=== PATIENT | female | born 1980 | race African-American/Black ===

== ENCOUNTER 2018-04-03 09:54 | Emergency (ER) | payer OTHER ==
[~2018-04-03] VITALS: Ht 149.9 cm; Wt 83.9 kg
[~2018-04-03 09:54] MED LIST: AZIT250T PO
[2018-04-03 10:26] VITALS: BP 125/76
[2018-04-03 10:40] LABS: BILIRUBIN,URINE NEGATIVE (NEG); CLARITY,URINE CLEAR; COLOR,URINE YELLOW; NITRITE,URINE NEGATIVE (NEG); PH,URINE 5.5; PROTEIN,URINE NEGATIVE (NEG-TRACE); UROBILINOGEN,URINE 0.2 mg/dL (0.2 mg/dL)
[2018-04-03 10:54] LABS: SQUAMOUS EPITHELIAL CELL,UR MOD /LPF
[2018-04-03 10:55] LABS: BACTERIA,URINE 0 /HPF (0-FEW); RBC,URINE 0 /HPF (0-2); WBC,URINE 20-40 /HPF (0-4)
[2018-04-03] MEDS ORDERED: cefTRIAXone IM 250 MG VIAL IM ONE (11:00)
[2018-04-03] MEDS ORDERED: AZITHROMYCIN 250 MG TABLET. PO ONE (11:00)
[2018-04-03] MEDS ORDERED: metroNIDAZOLE 500 MG TABLET PO ONE (11:00)
[2018-04-03] MEDS ORDERED: METR500T PO (11:31)
--- NOTE | 2018-04-03 11:31 | PHYS DOC ---
Past Medical History Past Medical History: Anxiety, Hypothyroid, Other Additional Past Medical Histor: CHRONIC PAIN, INSOMNIA Past Surgical History: Other Additional Past Surgical Histo: RIGHT CARPEL TUNNEL. Alcohol Use: None Drug Use: None Adult General Chief Complaint Chief Complaint: PAIN ON URINATION HPI HPI Patient is a 37 year old female who presents concerned she could have an STD. She states she's had vaginal itching and discharge for couple days. Also complaining of dysuria. Review of Systems Review of Systems Constitutional: Denies fever or chills [] Eyes: Denies change in visual acuity, redness, or eye pain [] HENT: Denies nasal congestion or sore throat [] Respiratory: Denies cough or shortness of breath [] Cardiovascular: No additional information not addressed in HPI [] GI: Denies abdominal pain, nausea, vomiting, bloody stools or diarrhea [] : Reports vaginal discharge, dysuria and concern for STDs. Denieshematuria [] Musculoskeletal: Denies back pain or joint pain [] Integument: Denies rash or skin lesions [] Neurologic: Denies headache, focal weakness or sensory changes [] All other systems were reviewed and found to be within normal limits, except as documented in this note. Current Medications Current Medications Current Medications Medications (Trade) Dose Ordered Sig/Ev Start Time Stop Time Status Last Admin Dose Admin Azithromycin (Zithromax) 1,000 mg 1X ONCE 04/03/18 11:00 04/03/18 11:11 DC 04/03/18 11:20 1,000 MG Ceftriaxone Sodium (Rocephin Im) 250 mg 1X ONCE 04/03/18 11:00 04/03/18 11:14 DC 04/03/18 11:21 250 MG Metronidazole (Flagyl) 2,000 mg 1X ONCE 04/03/18 11:00 04/03/18 11:11 DC 04/03/18 11:20 2,000 MG Allergies Allergies Allergies Coded Allergies Type Severity Reaction Last Updated Verified Penicillins Allergy Intermediate HIVES 02/07/18 Yes codeine Adverse Reaction Intermediate NAUSEA AND VOMITING 02/07/18 Yes Physical Exam Physical Exam Constitutional: Well developed, well nourished, no acute distress, non-toxic appearance. [] HENT: Normocephalic, atraumatic, bilateral external ears normal, oropharynx moist, no oral exudates, nose normal. [] Eyes: PERRLA, EOMI, conjunctiva normal, no discharge. [] Neck: Normal range of motion, no tenderness, supple, no stridor. [] Cardiovascular:Heart rate regular rhythm, no murmur [] Lungs & Thorax: Bilateral breath sounds clear to auscultation [] Abdomen: Bowel sounds normal, soft, no tenderness, no masses, no pulsatile masses. [] Pelvic exam External pelvic appears normal, cervix is closed, no CMT, no adnexal tenderness , small amount of white discharge in the vaginal vault. Skin: Warm, dry, no erythema, no rash. [] Back: No tenderness, no CVA tenderness. [] Extremities: No tenderness, no cyanosis, no clubbing, ROM intact, no edema. [] Neurologic: Alert and oriented X 3, normal motor function, normal sensory function, no focal deficits noted. [] Psychologic: Affect normal, judgement normal, mood normal. [] Current Patient Data Vital Signs Vital Signs Date Time Temp Pulse Resp B/P (MAP) Pulse Ox O2 Delivery O2 Flow Rate FiO2 04/03/18 10:26 98.3 80 16 125/76 (92) 100 Room Air 98.3 Lab Values Laboratory Tests Test 04/03/18 10:20 04/03/18 10:24 Urine Collection Type Unknown Urine Color Yellow Urine Clarity Clear Urine pH 5.5 Urine Specific [place] >=1.030 Urine Protein Negative mg/dL (NEG-TRACE) Urine Glucose (UA) Negative mg/dL (NEG) Urine Ketones (Stick) Trace mg/dL (NEG) Urine Blood Negative (NEG) Urine Nitrite Negative (NEG) Urine Bilirubin Negative (NEG) Urine Urobilinogen Dipstick 0.2 mg/dL (0.2 mg/dL) Urine Leukocyte Esterase Small (NEG) Urine RBC 0 /HPF (0-2) Urine WBC 20-40 /HPF (0-4) Urine Squamous Epithelial Cells Mod /LPF Urine Bacteria 0 /HPF (0-FEW) Urine Mucus Mod /LPF POC Urine HCG, Qualitative Hcg negative (Negative) Microbiology 04/03/18 Wet Prep - Final, Complete EKG EKG [] Radiology/Procedures Radiology/Procedures [] Course & Med Decision Making Course & Med Decision Making Pertinent Labs and Imaging studies reviewed. (See chart for details) This is a 37-year-old female patient presenting to the ED today with vaginal discharge and dysuria for couple days. Concerned about STDs. Positive for Trichomonas. Also positive for BV. Urine appears contaminated. Patient was given the standard STD treatment in the ED including Flagyl, Rocephin and azithromycin. Education provided. Follow-up with PCP in 1-2 weeks on the health department as needed. Staff Physician Addendum: I was working in the ER during the course of this patient's visit. I was available for consultation as needed, but I was not directly involved in the care of this patient. Dragon Disclaimer Dragon Disclaimer This electronic medical record was generated, in whole or in part, using a voice recognition dictation system. Departure Departure Impression: Primary Impression: Bacterial vaginosis Additional Impression: Trichomonas vaginitis Disposition: 01 HOME, SELF-CARE Condition: STABLE Referrals: NO PCP (PCP) Follow-up with your doctor or the health department as needed Patient Instructions: Bacterial Vaginosis, [id number], Trichomoniasis-Brief Additional Instructions: You tested positive for Trichomonas, this is a sexually transmitted disease, use protection at all times. Contact all your sex partners, let them know you were positive for Trichomonas, ask them to seek treatment too. No sex for 7 days. Use protection at all times. Complete your antibiotics for bacterial vaginosis Scripts Metronidazole (FLAGYL) 500 Mg Tablet 1 TAB PO BID, #10 TAB Prov: PINEDA HERMOSILLO APRN 04/03/18 Problem Qualifiers PINEDA HERMOSILLO APRN Apr 03, 2018 11:31 RUSTY DIAZ MD Apr 03, 2018 11:57
[2018-04-06 15:27] LABS: GC PROBE Negative (Negative)
== END 2018-04-03 11:37 | disposition home or self-care (01) ==
LOC: ER 09:54
DX: N76.0 Acute vaginitis (principal); B96.89 Other specified bacterial agents as the cause of diseases classified elsewhere; A59.01 Trichomonal vulvovaginitis; E03.9 Hypothyroidism, unspecified; G89.29 Other chronic pain; Z88.0 Allergy status to penicillin; Z88.5 Allergy status to narcotic agent
CPT/HCPCS: 81001; 81025; 87086; 87491; 87591; 96372; 99284; J0696; Q0111; Q0144

== ENCOUNTER 2018-07-13 12:04 | Emergency (ER) | payer OTHER ==
[~2018-07-13] VITALS: Ht 149.9 cm; Wt 88.5 kg
[~2018-07-13 12:04] MED LIST changes: +METR500T PO
[2018-07-13 13:45] VITALS: BP 154/89
[2018-07-13 14:36] LABS: BILIRUBIN,URINE NEGATIVE (NEG); CLARITY,URINE CLEAR; COLOR,URINE YELLOW; NITRITE,URINE NEGATIVE (NEG); PROTEIN,URINE NEGATIVE (NEG-TRACE)
[2018-07-13 14:58] LABS: BACTERIA,URINE 0 /HPF (0-FEW); RBC,URINE 0 /HPF (0-2); SQUAMOUS EPITHELIAL CELL,UR MANY /LPF; WBC,URINE 0 /HPF (0-4)
[2018-07-13] MEDS ORDERED: METR500T PO (16:15)
[2018-07-13] MEDS ORDERED: CYCL10TA2 PO (16:15)
[2018-07-13] MEDS ORDERED: NAPR-514 PO (16:15)
--- NOTE | 2018-07-13 16:15 | PHYS DOC ---
Past Medical History Past Medical History: Anxiety, Hypothyroid, Other Additional Past Medical Histor: CHRONIC PAIN, INSOMNIA Past Surgical History: Other Additional Past Surgical Histo: RIGHT CARPEL TUNNEL. Alcohol Use: None Drug Use: None Adult General Chief Complaint Chief Complaint: MULTIPLE COMPLAINTS HPI HPI Patient is a 37 year old AA female who presents to the ER with complaints of R sided neck pain for the last week. Pt states the pain increases when she moves her head. She denies any known injury, numbness, tingling, or weakness. She also complains of burning with urination, pelvic pressure after urinating, and irregular vaginal discharge for the last week. Pt states she has a hx of bacterial vaginosis and reports that the discharge is similar to those sx. She denies any incontinence, back pain, fever, hematuria, irregular vaginal odor, vaginal itching, or increased urine frequency. Pt denies any concern of sexually transmitted diseases. Review of Systems Review of Systems Constitutional: Denies fever or chills [] Eyes: Denies change in visual acuity, redness, or eye pain [] HENT: Denies nasal congestion or sore throat; see HPI [] Respiratory: Denies cough or shortness of breath [] Cardiovascular: No additional information not addressed in HPI [] GI: Denies abdominal pain, nausea, vomiting, or diarrhea [] : See HPI Musculoskeletal: Denies back pain Integument: Denies rash or skin lesions [] Neurologic: Denies headache, focal weakness or sensory changes [] Allergies Allergies Allergies Coded Allergies Type Severity Reaction Last Updated Verified Penicillins Allergy Intermediate HIVES 02/07/18 Yes codeine Adverse Reaction Intermediate NAUSEA AND VOMITING 02/07/18 Yes Physical Exam Physical Exam Constitutional: Well developed, well nourished, no acute distress, non-toxic appearance. [] HENT: Normocephalic, atraumatic, bilateral external ears normal, oropharynx moist, no oral exudates, tonsils normal, nose normal. [] Eyes: PERRLA, conjunctiva normal, no discharge. [] Neck: No bony tenderness, R sternocleidomastoid tenderness, supple, no stridor. [] Pelvic Exam: Combiner present Camille RN Abdomen: Nontender, soft External Genitalia: Normal Skin Speculum: Normal vaginal mucosa with thick white vaginal discharge, normal cervical discharge, non-friable cervix Bimanual: No adnexal masses or tenderness, No CMT Skin: Warm, dry, no erythema, no rash. [] Extremities: No cyanosis, ROM intact Neurologic: Alert and oriented X 3, normal motor function, normal sensory function, no focal deficits noted. [] Psychologic: Affect normal, judgement normal, mood normal. [] Current Patient Data Vital Signs Vital Signs Date Time Temp Pulse Resp B/P (MAP) Pulse Ox O2 Delivery O2 Flow Rate FiO2 07/13/18 13:45 97.8 58 18 154/89 (110) 100 Room Air 97.8 Lab Values Laboratory Tests Test 07/13/18 14:15 Urine Collection Type Unknown Urine Color Yellow Urine Clarity Clear Urine pH 7.0 Urine Specific [place] 1.025 Urine Protein Negative mg/dL (NEG-TRACE) Urine Glucose (UA) Negative mg/dL (NEG) Urine Ketones (Stick) Negative mg/dL (NEG) Urine Blood Negative (NEG) Urine Nitrite Negative (NEG) Urine Bilirubin Negative (NEG) Urine Urobilinogen Dipstick 1.0 mg/dL (0.2 mg/dL) Urine Leukocyte Esterase Negative (NEG) Urine RBC 0 /HPF (0-2) Urine WBC 0 /HPF (0-4) Urine Squamous Epithelial Cells Many /LPF Urine Bacteria 0 /HPF (0-FEW) Urine Mucus Mod /LPF Microbiology 07/13/18 Wet Prep - Final, Complete EKG EKG [] Radiology/Procedures Radiology/Procedures [] Course & Med Decision Making Course & Med Decision Making Pertinent Labs and Imaging studies reviewed. (See chart for details) DX: R torticollis, BV prescriptions for flagyl, naproxen, and flexeril written. Follow up with PCP if sx persist, return to ER if sx worsen. Patient verbalized an understanding of home care, medications, follow-up, and return to ED instructions and was in agreement with the plan of care. [] Dragon Disclaimer Dragon Disclaimer This electronic medical record was generated, in whole or in part, using a voice recognition dictation system. Departure Departure Impression: Primary Impression: Right torticollis Additional Impression: Bacterial vaginosis Disposition: HOME, SELF-CARE Condition: STABLE Referrals: NO PCP (PCP) Patient Instructions: Bacterial Vaginosis, [id number], Torticollis, Acute Additional Instructions: Gonorrhea and chlamydia testing results will not be available for 48 hours. Fill the prescriptions and use as directed. Recommend application of ice or heat to sore areas as needed for comfort. Follow up with your PCP if symptoms persist, return to the ER if symptoms worsen. Scripts Naproxen (NAPROXEN) 500 Mg Tablet 1 TAB PO BID PRN for PAIN for 10 Days, #20 TAB 0 Refills Prov: GARY PIPER APRN 07/13/18 Metronidazole (FLAGYL) 500 Mg Tablet 1 TAB PO BID, #14 TAB 0 Refills Prov: GARY PIPER APRN 07/13/18 Cyclobenzaprine Hcl (CYCLOBENZAPRINE HCL) 10 Mg Tablet 1 TAB PO TID PRN for PAIN for 10 Days, #30 TAB 0 Refills Prov: GARY PIPER APRN 07/13/18 Problem Qualifiers GARY PIPER APRN Jul 13, 2018 16:15
[2018-07-14 13:21] LABS: GC PROBE Negative (Negative)
== END 2018-07-13 16:20 | disposition home or self-care (01) ==
LOC: ER 12:04
DX: M43.6 Torticollis (principal); N76.0 Acute vaginitis; B96.89 Other specified bacterial agents as the cause of diseases classified elsewhere; E03.9 Hypothyroidism, unspecified; G89.29 Other chronic pain; F41.9 Anxiety disorder, unspecified; Z88.0 Allergy status to penicillin; Z88.5 Allergy status to narcotic agent
CPT/HCPCS: 81001; 87491; 87591; 99283; Q0111

== ENCOUNTER 2018-12-18 21:32 | Emergency (ER) | payer OTHER ==
[~2018-12-18] VITALS: Ht 149.9 cm; Wt 83.9 kg
[~2018-12-18 21:32] MED LIST changes: +CYCL10TA2 PO; +NAPR-514 PO
[2018-12-18 22:00] VITALS: BP 145/78
[2018-12-18 22:22] LABS: BILIRUBIN,URINE NEGATIVE (NEG); CLARITY,URINE CLEAR; COLOR,URINE YELLOW; NITRITE,URINE NEGATIVE (NEG); PROTEIN,URINE NEGATIVE (NEG-TRACE); UROBILINOGEN,URINE 0.2 mg/dL (0.2 mg/dL)
[2018-12-18 22:29] LABS: SQUAMOUS EPITHELIAL CELL,UR MOD /LPF
[2018-12-18 22:30] LABS: AMORPHOUS SEDIMENT,UR PRESENT /HPF; BACTERIA,URINE 0 /HPF (0-FEW); RBC,URINE 0 /HPF (0-2); WBC,URINE RARE /HPF (0-4)
--- NOTE | 2018-12-18 22:34 | PHYS DOC ---
Past Medical History Past Medical History: Anxiety, Hypothyroid, Other Additional Past Medical Histor: CHRONIC PAIN, INSOMNIA Past Surgical History: Other Additional Past Surgical Histo: RIGHT CARPEL TUNNEL. Alcohol Use: None Drug Use: None Adult General Chief Complaint Chief Complaint: ABDOMINAL PAIN HPI HPI Patient is a 38 year old [female] who presents with [vulvar discomfort/discharge/itching and lower abdominal pain]. Pt reports a 1-2 week history of vulvar discomfort/ clear discharge that started to cause "a little bit" of lower abdominal pain. She reports a history of multiple bouts of bacterial vaginosis and states that she is usually able to "treat them with home remedies," but said remedies had no effect on her current symptoms. She notes that the vulvar itching is more prominent compared to her usual symptoms with BV and that her discharge is "not foul smelling like my usual BV." She denies chest pain, headache, shortness of breath, back pain, diarrhea, n/v, or fever/chills. She admits to polyuria. LMP was 2 weeks ago. Review of Systems Review of Systems Constitutional: Denies fever or chills Eyes: Denies change in visual acuity, redness, or eye pain HENT: Denies nasal congestion or sore throat Respiratory: Denies cough or shortness of breath Cardiovascular: No additional information not addressed in HPI GI: Denies nausea, vomiting, bloody stools or diarrhea [Admits to lower abdominal pain] : Denies dysuria or hematuria [Admits to vulvar itching, clear discharge, and discomfort] Musculoskeletal: Denies back pain or joint pain Integument: Denies rash or skin lesions Neurologic: Denies headache, focal weakness or sensory changes Endocrine: Denies polyuria or polydipsia [Admits polyuria] All other systems were reviewed and found to be within normal limits, except as documented in this note. Current Medications Current Medications Current Medications Medications (Trade) Dose Ordered Sig/Ev Start Time Stop Time Status Last Admin Dose Admin Azithromycin (Zithromax) 1,000 mg 1X ONCE 12/18/18 23:45 12/18/18 23:46 UNV Ceftriaxone Sodium (Rocephin Im) 250 mg 1X ONCE 12/18/18 23:45 12/18/18 23:46 UNV Allergies Allergies Allergies Coded Allergies Type Severity Reaction Last Updated Verified Penicillins Allergy Intermediate HIVES 02/07/18 Yes codeine Adverse Reaction Intermediate NAUSEA AND VOMITING 02/07/18 Yes Physical Exam Physical Exam Constitutional: Well developed, well nourished, no acute distress, non-toxic appearance. HENT: Normocephalic, atraumatic, bilateral external ears normal, oropharynx moist, no oral exudates, nose normal. Eyes: PERRLA, EOMI, conjunctiva normal, no discharge. Neck: Normal range of motion, no tenderness, supple, no stridor. Cardiovascular:Heart rate regular rhythm, no murmur [] Lungs & Thorax: Bilateral breath sounds clear to auscultation [] Abdomen: Bowel sounds normal, soft, no tenderness, no masses, no pulsatile masses. [Lower abdominal pain was not reproducible with palpation] Genitourinary: [No vulvar atrophy, erythema, or lesions observed. Profuse white discharge and pooling noted throughout the vagina, slightly erythematous vaginal wall. Normal appearing multiparous, non-friable cervix visualized with speculum. No adnexal masses or tenderness noted on pelvic exam.] Skin: Warm, dry, no erythema, no rash. Back: No tenderness, no CVA tenderness. Extremities: No tenderness, no cyanosis, no clubbing, ROM intact, no edema. Neurologic: Alert and oriented X 3, normal motor function, normal sensory function, no focal deficits noted. Psychologic: Affect normal, judgement normal, mood normal. Current Patient Data Vital Signs Vital Signs Date Time Temp Pulse Resp B/P (MAP) Pulse Ox O2 Delivery O2 Flow Rate FiO2 12/18/18 22:00 98.4 68 18 145/78 (100) 99 Room Air 98.4 Lab Values Laboratory Tests Test 12/18/18 21:35 12/18/18 21:56 Urine Collection Type Unknown Urine Color Yellow Urine Clarity Clear Urine pH 6.0 Urine Specific [place] 1.010 Urine Protein Negative mg/dL (NEG-TRACE) Urine Glucose (UA) Negative mg/dL (NEG) Urine Ketones (Stick) Negative mg/dL (NEG) Urine Blood Negative (NEG) Urine Nitrite Negative (NEG) Urine Bilirubin Negative (NEG) Urine Urobilinogen Dipstick 0.2 mg/dL (0.2 mg/dL) Urine Leukocyte Esterase Negative (NEG) Urine RBC 0 /HPF (0-2) Urine WBC Rare /HPF (0-4) Urine Squamous Epithelial Cells Mod /LPF Urine Amorphous Sediment Present /HPF Urine Bacteria 0 /HPF (0-FEW) Urine Mucus Slight /LPF POC Urine HCG, Qualitative Hcg negative (Negative) Microbiology 12/18/18 Wet Prep - Final, Complete EKG EKG [] Radiology/Procedures Radiology/Procedures [] Course & Med Decision Making Course & Med Decision Making Pertinent Labs and Imaging studies reviewed. (See chart for details) [Pt is a 38 yo female with a history of multiple vaginal infections reports with vulvar itching/discomfort/clear discharge and lower abdominal pain. Pt states discharge is not foul smelling like it usually is when she has BV. She also notes that itching is much more prominent compared to previous BV infections. The home remedies that normally treat her BV, per pt, were non-effective for her current symptoms. Lower abdomen was nontender to palpation. On pelvic examination, chaperoned by Nabila, performed by yonatan nuñez [email or web address], white discharge was seen throughout the vaginal vault and the vaginal booker were erythematous and slightly edematous. The cervix was normal-appearing. Vaginal swabs were collected and taken for culture and microscopy. Yeast infection is most likely with pelvic findings of white discharge, prominent itching, and non- foul discharge. Bacterial vaginosis is possible as well and will await results of the vaginal specimen cultures/microscopy. wet prep shows clue cells ctx/azithro given in er presumpitvely rx flagyl Dragon Disclaimer Dragon Disclaimer This electronic medical record was generated, in whole or in part, using a voice recognition dictation system. Departure Departure Impression: Primary Impression: Bacterial vaginosis Disposition: HOME, SELF-CARE Condition: STABLE Referrals: NO PCP (PCP) Scripts Metronidazole (METRONIDAZOLE) 500 Mg Tablet 1 TAB PO BID, #14 TAB Prov: RUSTY DIAZ MD 12/18/18 RUSTY DIAZ MD Dec 18, 2018 22:33
[2018-12-18] MEDS ORDERED: METR-34 PO (23:37)
[2018-12-18] MEDS ORDERED: FLUC150T PO (23:46)
[2018-12-19] MEDS ORDERED: cefTRIAXone IM 250 MG VIAL IM ONE
[2018-12-19] MEDS ORDERED: AZITHROMYCIN 250 MG TABLET. PO ONE
[2018-12-22 17:13] LABS: GC PROBE Negative (Negative)
== END 2018-12-18 23:49 | disposition home or self-care (01) ==
LOC: ER 21:32
DX: N76.0 Acute vaginitis (principal); B96.89 Other specified bacterial agents as the cause of diseases classified elsewhere; E03.9 Hypothyroidism, unspecified; G89.29 Other chronic pain; Z88.0 Allergy status to penicillin; Z88.5 Allergy status to narcotic agent
CPT/HCPCS: 81001; 81025; 87491; 87591; 96372; 99284; J0696; Q0111; Q0144